=== PATIENT | male | born 1965 | race Caucasian/White ===

== ENCOUNTER → 2021-09-05 | Outpatient (CLI) | payer MEDICAID | LOC: ORTHO 09:14 | PROVIDERS: ATTEND Orthopaedic Surgery | DX: G56.03 Carpal tunnel syndrome, bilateral upper limbs (principal) | CPT/HCPCS: 99213 ==

== ENCOUNTER → 2021-11-28 | Outpatient (CLI) | payer MEDICAID | LOC: ORTHO 10:30 | PROVIDERS: ATTEND Orthopaedic Surgery | DX: G56.03 Carpal tunnel syndrome, bilateral upper limbs (principal); E03.9 Hypothyroidism, unspecified; I10 Essential (primary) hypertension; J45.909 Unspecified asthma, uncomplicated ==

== ENCOUNTER 2021-12-15 06:33 | Outpatient (CLI) | payer MEDICAID ==
[~2021-12-15] VITALS: Ht 175 cm; Wt 79.5 kg
[2021-12-15] MEDS ORDERED: LISI20TA26 PO (13:46)
[2021-12-15] MEDS ORDERED: ALEN70TA80 PO (13:46)
== END 2021-12-15 13:57 ==
LOC: PREOP 06:33
PROVIDERS: ATTEND Orthopaedic Surgery
DX: Z01.818 Encounter for other preprocedural examination (principal); G56.02 Carpal tunnel syndrome, left upper limb

== ENCOUNTER 2021-12-22 05:49 | Day surgery (SDC) | payer OTHER ==
[~2021-12-22] VITALS: Ht 175 cm; Wt 79.5 kg
[2021-12-22] VITALS (9 sets, daily range): BP systolic 92–160; BP diastolic 63–92
[~2021-12-22 05:49] MED LIST: ALEN70TA80 PO; LISI20TA26 PO
[2021-12-22] MEDS ORDERED: PROPOFOL INJECTION 50 ML IV ONE (07:01)
[2021-12-22] MEDS ORDERED: MIDAZOLAM 2 MG/2 ML (VERSED) VIAL ONE (07:01)
[2021-12-22] MEDS ORDERED: ceFAZolin INJECTION 1,000 MG ONE (07:15)
[2021-12-22] MEDS ORDERED: NEO/POLY/BAC (NEOSPORIN) OINT 15 GM TUBE ONE (07:18)
[2021-12-22] MEDS ORDERED: ceFAZolin INJECTION 1,000 MG VIAL IV ONE (07:30)
--- NOTE | 2021-12-22 07:39 | Operative Report - Ortho ---
Operative Report Surgeon (s)/Research Chief Engineer (s) Surgeon CHARITO AUGUSTIN MD Research Chief Engineer n/a Pre-Operative Diagnosis Left Carpal Tunnel Syndrome Post-Operative Diagnosis same Operative Report Date of Procedure: December 22, 2021 Name of Procedure Performed: Left Carpal Tunnel Release Description & Findings After obtaining informed consent and marking the patient in the preoperative holding area, the patient was administered IV antibiotics. The patient was t aken to the operating room and adele block anesthesia was induced. The left upper extremity was prepped and draped in the usual sterile fashion. Surgical timeout was taken. Incision was made just ulnar to the thenar crease. Blunt dissection was carried down to the longitudinal fibers of the palmar fascia; these were divided in line revealing the transverse carpal ligament. Beginning distally and working proximally, carpal tunnel release was performed. Nerve protector was placed and release was completed back to the level of the forearm fascia. Probe was inserted and release was palpably complete. Tourniquet was dropped and hemostasis was achieved. Wound was closed with 4-0 nylon. Wound was dressed with antibiotic ointment, xeroform, 4x4s, catalina, ABD for soft splint, cast padding, and SHIRLEY wrap. Patient tolerated the proceudre well and was stable to the recovery room. Anesthesia Type Adele Block Estimated Blood Loss minimal Specimen(s) collected/removed None CHARITO AUGUSTIN MD December 22, 2021 07:39
--- NOTE | 2021-12-22 07:39 | Progress Note-Pre Operative ---
Pre-Operative Progress Note H&P Reviewed The H&P was reviewed, patient examined and no changes noted. Date Seen by Provider: December 22, 2021 Time Seen by Provider: 07:30 Date H&P Reviewed: December 22, 2021 Time H&P Reviewed: 07:30 Pre-Operative Diagnosis: Left Carpal Tunnel Syndrome CHARITO AUGUSTIN MD December 22, 2021 07:38
[2021-12-22] MEDS ORDERED: OXC5T PO (07:40)
[2021-12-22] MEDS ORDERED: LACTATED RINGERS 1,000 ML IV PRN (07:45)
[2021-12-22] MEDS ORDERED: MUPIROCIN 2% OINT 22 GM (BACTROBAN) TUBE ONE (07:47)
[2021-12-22] MEDS ORDERED: BUPIVACAINE 0.5% 30 ML (SENSORCAINE) VIAL ONE (07:59)
[2021-12-22] MEDS ORDERED: LIDOCAINE PF 0.5% 50 ML (XYLOCAINE) VIAL ONE (08:16)
--- NOTE | 2021-12-22 11:45 | Anesthesia-General Post-Op ---
MAC Patient Condition Mental Status/LOC: Same as Preop Cardiovascular: Satisfactory Nausea/Vomiting: Absent Respiratory: Satisfactory Pain: Controlled Complications: Absent Post Op Complications Complications None Follow Up Care/Instructions Patient Instructions None needed. Anesthesiology Discharge Order Discharge Order Patient is doing well, no complaints, stable vital signs, no apparent adverse anesthesia problems. No complications reported per nursing. ANAY SEGURA CRNA December 22, 2021 11:45
== END 2021-12-22 09:45 | disposition home or self-care (01) ==
LOC: SDC 05:49
PROVIDERS: ATTEND Orthopaedic Surgery
DX: G56.03 Carpal tunnel syndrome, bilateral upper limbs (principal); Z87.891 Personal history of nicotine dependence
CPT/HCPCS: 87081

== ENCOUNTER → 2022-03-20 | Outpatient (CLI) | payer OTHER ==
[~2022-03-20] MED LIST changes: +OXC5T PO
== END ==
LOC: ORTHO 08:26
PROVIDERS: ATTEND Orthopaedic Surgery
DX: Z47.89 Encounter for other orthopedic aftercare (principal); J45.909 Unspecified asthma, uncomplicated; I10 Essential (primary) hypertension; Z98.890 Other specified postprocedural states